=== PATIENT | male | born 1970 | race Caucasian/White ===

== ENCOUNTER 2020-11-20 05:58 | Day surgery (SDC) | payer MEDICARE, MEDICAID ==
[2020-11-18 14:53] VITALS: BMI 20.3
--- NOTE | 2020-11-20 08:56 | OP ---
DATE OF PROCEDURE: 11/20/2020 PROCEDURE: Esophagogastroduodenoscopy. PREMEDICATION: Given by Anesthesiology Department. PRE PROCEDURE DIAGNOSIS: Chronic gastroesophageal reflux, disease activity assessment. POST PROCEDURE DIAGNOSES: 1. Normal esophagus. 2. Hiatal hernia, 5 cm in length. 3. Normal stomach and duodenum. 4. Gastrostomy balloon visible in the distal gastric body. DESCRIPTION OF PROCEDURE: Written consents were obtained prior to procedure. After adequate sedation, the forward-viewing endoscope was advanced down the stomach through the pylorus into the duodenum. The duodenum appeared normal. Pylorus was patent. The gastric antrum, body, fundus, and cardia all appeared normal. The retaining gastrostomy balloon was visible and was inflated. The patient has a hiatal hernia with gastric fold visible at 40 cm and Z-line visible at 35 cm. The esophagus appeared normal without any erosions. The patient tolerated the procedure well. ASSESSMENT: 1. Hiatal hernia with normal esophagus. 2. Otherwise normal upper endoscopy. RECOMMENDATION: Continue with esomeprazole 40 mg p.o. q. day. Job ID: [id number]
--- NOTE | 2020-11-20 08:59 | OP ---
DATE OF PROCEDURE: 11/20/2020 PROCEDURE PERFORMED: Colonoscopy, not performed. PREPROCEDURE DIAGNOSES: 1. Colorectal screening. 2. History of heme-positive stool, but negative fecal immuno tests since then. DESCRIPTION OF PROCEDURE: The patient was positioned for colonoscopy after the completed upper endoscopy. However, digital exam performed showed copious dark brownish liquid stool coming from the colon. The patient is not adequately prepped for a proper screening colonoscopy. ASSESSMENT: Inadequate bowel prep with still dark thick liquid brown stool. RECOMMENDATION: The patient is a good candidate for Cologuard test if colorectal screening is desired. Job ID: [id number]
[2020-11-20] MEDS ORDERED: Lidocaine 1% PF 5 ML VIAL ONE (09:12)
[2020-11-20] MEDS ORDERED: PROPOFOL 200 MG/20 ML VIAL ONE (09:12)
[2020-11-20] MEDS ORDERED: PHENYLEPHRINE-NS 100 MCG/ML 10 ML SYRINGE ONE (09:12)
== END 2020-11-20 09:15 | disposition short-term general hospital (02) ==
LOC: SDC 05:58
PROVIDERS: ATTEND Internal Medicine Gastroenterology
PROC: 0DJ08ZZ Inspection of Upper Intestinal Tract, Via Natural or Artificial Opening Endoscopic (ICD-10-PCS; principal; 2020-11-20)
DX: K44.9 Diaphragmatic hernia without obstruction or gangrene (principal); K21.9 Gastro-esophageal reflux disease without esophagitis; R19.5 Other fecal abnormalities; Z79.899 Other long term (current) drug therapy
CPT/HCPCS: J2704

== ENCOUNTER 2021-10-02 15:40 | Outpatient (CLI) | payer MEDICARE, MEDICAID ==
[2021-10-03 11:22] LABS: SARS-CoV-2 PCR by NAA Not Detected (NotDetected)
== END 2021-10-02 15:41 | disposition home or self-care (01) ==
LOC: LABBT 15:40
PROVIDERS: ATTEND Internal Medicine Gastroenterology
DX: Z01.812 Encounter for preprocedural laboratory examination (principal); Z20.822 Contact with and (suspected) exposure to COVID-19
CPT/HCPCS: U0003; U0005

== ENCOUNTER 2021-10-07 07:07 | Day surgery (SDC) | payer MEDICARE, MEDICAID ==
[2021-10-06 09:15] VITALS: BMI 17.7
[2021-10-07] MEDS ORDERED: PROPOFOL 200 MG/20 ML VIAL ONE (08:48)
[2021-10-07] MEDS ORDERED: Phenylephrine 10 MG/ML VIAL ONE (08:48)
== END 2021-10-07 10:15 ==
LOC: SDC 07:07
PROVIDERS: ATTEND Internal Medicine Gastroenterology
PROC: 0DJ08ZZ Inspection of Upper Intestinal Tract, Via Natural or Artificial Opening Endoscopic (ICD-10-PCS; principal; 2021-10-07)
DX: K22.11 Ulcer of esophagus with bleeding (principal); K44.9 Diaphragmatic hernia without obstruction or gangrene; D64.9 Anemia, unspecified; E78.00 Pure hypercholesterolemia, unspecified; M81.0 Age-related osteoporosis without current pathological fracture; F73 Profound intellectual disabilities; G82.50 Quadriplegia, unspecified; Z79.899 Other long term (current) drug therapy; Z93.1 Gastrostomy status
CPT/HCPCS: J2370; J2704

== ENCOUNTER 2024-07-11 05:53 | Day surgery (SDC) | payer MEDICARE, MEDICAID ==
[2024-07-10 10:47] VITALS: BMI 20.9
[2024-07-11] MEDS ORDERED: Propofol 500 MG/50 ML VIAL ONE (07:01)
[2024-07-11] MEDS ORDERED: Phenylephrine 10 MG/ML VIAL ONE (07:06)
[2024-07-11] MEDS ORDERED: Midazolam HCl 2 mg/2 ml Vial ONE (07:06)
[2024-07-11] MEDS ORDERED: GLYCOPYRROLATE/PF 0.2 MG/ML VIAL ONE (07:07)
[2024-07-11] MEDS ORDERED: Lidocaine 2% PF 5 ML VIAL ONE (07:07)
[2024-07-11] MEDS ORDERED: Simethicone 40 MG/0.6 ML Drop 30 ML BOT ONE (07:20)
== END 2024-07-11 08:55 | disposition home or self-care (01) ==
LOC: SDC 05:53
PROVIDERS: ATTEND Internal Medicine Gastroenterology
PROC: 0DJD8ZZ Inspection of Lower Intestinal Tract, Via Natural or Artificial Opening Endoscopic (ICD-10-PCS; principal; 2024-07-11)
DX: R93.3 Abnormal findings on diagnostic imaging of other parts of digestive tract (principal); Q43.8 Other specified congenital malformations of intestine; K44.9 Diaphragmatic hernia without obstruction or gangrene; K21.9 Gastro-esophageal reflux disease without esophagitis; E78.00 Pure hypercholesterolemia, unspecified; M81.0 Age-related osteoporosis without current pathological fracture; J45.909 Unspecified asthma, uncomplicated; Z79.899 Other long term (current) drug therapy
CPT/HCPCS: 45378; J2001; J2250; J2371; J2704; J3490